=== PATIENT | female | born 1985 | race Caucasian/White ===

== ENCOUNTER 2018-09-29 01:33 | Inpatient (IN) | payer MEDICAID ==
[~2018-09-29] VITALS: Ht 165.1 cm; Wt 70.3 kg
[2018-09-29] MEDS ORDERED: PREN1TAB80 PO (01:39)
[2018-09-29 02:26] VITALS: BP 134/89
[2018-09-29] MEDS ORDERED: RINGERS SOLUTION,LACTATED 1,000 ML IV SCH ×2 (02:45→03:48)
[2018-09-29] MEDS ORDERED: RINGERS SOLUTION,LACTATED 1,000 ML IV PRN (03:48)
[2018-09-29] MEDS ORDERED: OXYTOCIN 30 UNITS/LACT RINGERS 500 ML IV ONE (03:48)
[2018-09-29] MEDS ORDERED: CITRIC ACID/SODIUM CITRATE 30 ML SOLUTION UDCUP PO PRN (04:00)
[2018-09-29] MEDS ORDERED: METOCLOPRAMIDE HCL 5 MG/ML 2 ML VIAL IVP PRN (04:00)
[2018-09-29] MEDS ORDERED: METHYLERGONOVINE MALEATE 0.2 MG/ML VIAL IM PRN (04:00)
[2018-09-29] MEDS ORDERED: LIDOCAINE/PF 1% 30 ML VIAL INJ PRN (04:00)
[2018-09-29] MEDS ORDERED: FentaNYL CITRATE-PF 100 MCG/2 ML VIAL IVP PRN (04:00)
[2018-09-29] MEDS ORDERED: ROPIVACAINE HCL/PF 0.2% 100 ML ED ONE (04:05)
[2018-09-29] MEDS ORDERED: ROPIVACAINE HCL/PF 0.2% 100 ML ED PRN (04:29)
[2018-09-29] MEDS ORDERED: ONDANSETRON HCL 4 MG/2 ML VIAL IVP PRN (04:30)
[2018-09-29] MEDS ORDERED: NALBUPHINE HCL 10 MG/ML VIAL IVP PRN (04:30)
[2018-09-29] MEDS ORDERED: DiphenhydrAMINE HCL 50 MG/ML VIAL IVP PRN (04:30)
[2018-09-29 05:30] LABS: BASOPHILS % (AUTO) 0.4 % (0.0-2.0); EOSINOPHILS % (AUTO) 0.1 % (1.0-6.0); HEMATOCRIT 34.1 % (36-46); HEMOGLOBIN 11.6 g/dL (12.0-16.0); LYMPHOCYTES # (AUTO) 1.4 K/uL (1.0-4.8); LYMPHOCYTES % (AUTO) 8.2 % (22.0-44.0); MEAN CORPUSCULAR HEMOGLOBIN 29.5 pg (26.0-34.0); MEAN CORPUSCULAR HGB CONC 34.1 G/dL (31.0-37.0); MEAN CORPUSCULAR VOLUME 87 fL (80-100); MONOCYTES # (AUTO) 0.6 K/uL (0.1-1.0); MONOCYTES % (AUTO) 3.6 % (2.0-9.0); NEUTROPHILS # (AUTO) 14.9 K/uL (1.8-7.7); PLATELET COUNT (AUTO)-OB 201 K/uL (150-450); RED BLOOD CELL COUNT(AUTO) 3.95 MIL/uL (4.00-5.20); RED CELL DISTRIBUTION WIDTH 14.8 % (11.5-14.5)
[2018-09-29 05:32] LABS: NEUTROPHILS % (AUTO) 87.7 % (40.0-70.0)
[2018-09-29] MEDS ORDERED: OXYGEN THERAPY IH SCH (08:00)
[2018-09-29] MEDS ORDERED: OXYTOCIN 20 UNITS/LACT RINGERS 1,000 ML IV SCH (12:11)
[2018-09-29] MEDS ORDERED: MEASLES/MUMPS/RUBELLA VACCINE, LIVE 0.5 ML/VIAL SQ ONE (12:15)
[2018-09-29] MEDS ORDERED: GLYCERIN/WITCH HAZEL LEAF 40 PADS JAR TP PRN (12:15)
[2018-09-29] MEDS ORDERED: BENZOCAINE 20%/MENTHOL 56 GM SPRAY CANISTER TP PRN (12:15)
[2018-09-29] MEDS ORDERED: LANOLIN 7 GM OINTMENT TP PRN (12:15)
[2018-09-29] MEDS ORDERED: ACETAMINOPHEN/CODEINE 300-30 MG TABLET PO PRN (12:15)
[2018-09-29] MEDS: IBUPROFEN 600 MG TABLET PO PRN (16:50)
[2018-09-29] MEDS: MAGNESIUM HYDROXIDE SUSPENSION 30 ML UDCUP PO PRN (21:09)
[2018-09-29] MEDS: SENNA/DOCUSATE SODIUM 8.6-50 MG TABLET PO PRN (21:09)
[2018-09-30] MEDS: IBUPROFEN 600 MG TABLET PO PRN ×2 (00:28→08:20)
[2018-09-30 06:29] LABS: BASOPHILS % (AUTO) 0.3 % (0.0-2.0); EOSINOPHILS % (AUTO) 0.4 % (1.0-6.0); HEMATOCRIT 27.1 % (36-46); HEMOGLOBIN 9.6 g/dL (12.0-16.0); LYMPHOCYTES # (AUTO) 2.2 K/uL (1.0-4.8); LYMPHOCYTES % (AUTO) 13.4 % (22.0-44.0); MEAN CORPUSCULAR HEMOGLOBIN 30.5 pg (26.0-34.0); MEAN CORPUSCULAR HGB CONC 35.5 G/dL (31.0-37.0); MEAN CORPUSCULAR VOLUME 86 fL (80-100); MONOCYTES # (AUTO) 0.7 K/uL (0.1-1.0); MONOCYTES % (AUTO) 4.6 % (2.0-9.0); NEUTROPHILS # (AUTO) 13.1 K/uL (1.8-7.7); NEUTROPHILS % (AUTO) 81.3 % (40.0-70.0); PLATELET COUNT (AUTO)-OB 176 K/uL (150-450); RED BLOOD CELL COUNT(AUTO) 3.16 MIL/uL (4.00-5.20); RED CELL DISTRIBUTION WIDTH 14.7 % (11.5-14.5)
[2018-09-30] MEDS: SENNA/DOCUSATE SODIUM 8.6-50 MG TABLET PO PRN (08:20)
[2018-09-30] MEDS: MAGNESIUM HYDROXIDE SUSPENSION 30 ML UDCUP PO PRN (08:20)
[2018-09-30] MEDS ORDERED: IBUP-2071 PO (10:58)
== END 2018-09-30 15:25 | disposition home or self-care (01) | DRG 560 ==
LOC: OBSVTOIN 01:33 → 4S 01:33
PROVIDERS: ADMIT Obstetrics & Gynecology; ATTEND Obstetrics & Gynecology
PROC: 10E0XZZ Delivery of Products of Conception, External Approach (ICD-10-PCS; principal; 2018-09-29)
PROC: 0KQM0ZZ Repair Perineum Muscle, Open Approach (ICD-10-PCS; 2018-09-29)
PROC: 3E0R3BZ Introduction of Anesthetic Agent into Spinal Canal, Percutaneous Approach (ICD-10-PCS; 2018-09-29)
PROC: 00HU33Z Insertion of Infusion Device into Spinal Canal, Percutaneous Approach (ICD-10-PCS; 2018-09-29)
DX: O77.0 Labor and delivery complicated by meconium in amniotic fluid (principal); O70.1 Second degree perineal laceration during delivery; Z37.0 Single live birth; Z3A.39 39 weeks gestation of pregnancy
CPT/HCPCS: 86850; 86900; 86901; 90686; J2590; J2795; J7120